=== PATIENT | male | born 1945 | race Caucasian/White ===

== ENCOUNTER → 2017-03-23 | Day surgery (SDC) | payer MEDICARE, OTHER ==
[~2017-03-23] MED LIST: DOXA4TAB2 PO; HYDR-2869 PO; IV RINGERS,LACTATED 1000ML 1,000 ML IV SCH; METF-620 PO; METO50TA2 PO; NIFE30TA38 PO; PROPOFOL 40 ML IV ONE; SIMV20TA PO; SITA100T PO; TELM1TAB PO
[2017-03-23 12:45] VITALS: BP 166/71
== END | disposition home or self-care (01) ==
LOC: ENDOS 10:42
PROVIDERS: ATTEND Internal Medicine Gastroenterology
DX: Z12.11 Encounter for screening for malignant neoplasm of colon (principal); K64.1 Second degree hemorrhoids; I25.10 Atherosclerotic heart disease of native coronary artery without angina pectoris; E78.00 Pure hypercholesterolemia, unspecified; E11.9 Type 2 diabetes mellitus without complications
CPT/HCPCS: 99156; G0121; J2704